=== PATIENT | male | born 1960 | race Caucasian/White ===

== ENCOUNTER 2017-10-06 19:00 | Emergency (ER) | payer MEDICAID ==
[2017-10-07] MEDS: SILVER SULFADIAZINE 1% 25 GM CR TOP (00:09)
[2017-10-07] MEDS: CEFTRIAXONE 1 GM INJ IM (00:09)
[2017-10-07] MEDS: DIPHTH/TET/ACEL PERTUSS (ADULT) 0.5 ML VIAL IM* (00:13)
[2017-10-07] MEDS: ONDANSETRON (ODT) 4 MG TAB ODT (00:27)
[2017-10-07] MEDS: morphine 4 MG/ML VIAL IM (00:27)
== END 2017-10-07 01:45 | disposition home or self-care (01) ==
LOC: E/R 10-07 01:45
DX: T25.221A Burn of second degree of right foot, initial encounter (principal); T25.222A Burn of second degree of left foot, initial encounter; F17.210 Nicotine dependence, cigarettes, uncomplicated; X11.8XXA Contact with other hot tap-water, initial encounter; Y92.9 Unspecified place or not applicable
CPT/HCPCS: 90471; 90715; 96372; 99284-25